=== PATIENT | male | born 1945 | race Caucasian/White ===

== ENCOUNTER 2018-12-11 10:40 | Emergency (ER) | payer MEDICARE, OTHER ==
[2018-12-11] MEDS ORDERED: ACETAMINOPHEN 325 MG TABLET PO STA (12:07)
--- NOTE | 2018-12-11 12:08 | ED Physician Documentation ---
History of Present Illness - Stated complaint Stated Complaint: FEVER,CHILLS,DIZZINESS - Chief complaint Chief Complaint: Heent - History obtained from History obtained from: Patient - History of Present Illness Timing: Last night (Starting last night he has had fevers and chills some aches but no cough, sore throat, runny nose, abdominal pain, nausea, diarrhea. No rash. No recent travel. No sick contacts.) Review of Systems Constitutional: reports: Fever, Chills, Myalgias, Fatigue Nose: denies: Rhinorrhea / runny nose, Congestion Throat: denies: Sore throat Cardiac: denies: Chest pain / pressure, Palpitations Respiratory: denies: Dyspnea, Cough GI: denies: Abdominal Pain, Nausea, Diarrhea : denies: Dysuria, Frequency PD PAST MEDICAL HISTORY - Past Medical History Past Medical History: No - Allergies Allergies/Adverse Reactions: Allergies Allergy/AdvReac Type Severity Reaction Status Date / Time No Known Drug Allergies Allergy Verified 12/11/18 10:44 - Living Situation Living Situation: reports: With spouse/s.o. - Social History Does the pt smoke?: No PD ED PE NORMAL - Vitals Vital signs reviewed: Yes - General General: Alert and oriented X 3, No acute distress - HEENT HEENT: PERRL, EOMI, Ears normal, Pharynx benign - Neck Neck: Supple, no meningeal sign, No bony TTP - Cardiac Cardiac: RRR, Other (I think he is a very subtle heart murmur, potentially 1 out of 6 which he is not aware of, systolic.) - Respiratory Respiratory: No respiratory distress, Clear bilaterally - Abdomen Abdomen: Normal bowel sounds, Soft, Non tender - Back Back: No CVA TTP, No spinal TTP - Derm Derm: Normal color, Warm and dry - Extremities Extremities: No edema, No calf tenderness / cord - Neuro Neuro: Alert and oriented X 3, Normal speech Results - Vitals Vitals: Vital Signs - 24 hr 12/11/18 12/11/18 10:44 11:37 Temperature 38.5 C H 38.8 C H Heart Rate 71 Respiratory 16 Rate Blood Pressure 144/83 H O2 Saturation 97 Oxygen O2 Source Room air - Labs Labs: Laboratory Tests 12/11/18 12/11/18 12/11/18 12:15 12:15 12:15 WBC 10.3 RBC 4.86 Hgb 14.4 Hct 44.2 MCV 90.9 MCH 29.6 MCHC 32.6 RDW 12.7 Plt Count 138 MPV 10.5 Neut # (Auto) 9.3 H Lymph # (Auto) 0.5 L Cottle # (Auto) 0.4 Eos # (Auto) 0.0 Baso # (Auto) 0.0 Absolute Nucleated RBC 0.00 Nucleated RBC % 0.0 Sodium 138 Potassium 3.9 Chloride 105 Carbon Dioxide 25 Anion Gap 8.0 BUN 19 Creatinine 1.0 Estimated GFR (MDRD) 74 L Glucose 108 H Lactic Acid 0.7 Calcium 8.6 Total Bilirubin 1.0 AST 30 ALT 38 Alkaline Phosphatase 49 Total Protein 6.6 L Albumin 3.7 Globulin 2.9 Albumin/Globulin Ratio 1.3 Lipase 26 Urine Color Urine Clarity Urine pH Ur Specific [place] Urine Protein Urine Glucose (UA) Urine Ketones Urine Occult Blood Urine Nitrite Urine Bilirubin Urine Urobilinogen Ur Leukocyte Esterase Ur Microscopic Review Urine Culture Comments 12/11/18 12:34 WBC RBC Hgb Hct MCV MCH MCHC RDW Plt Count MPV Neut # (Auto) Lymph # (Auto) Cottle # (Auto) Eos # (Auto) Baso # (Auto) Absolute Nucleated RBC Nucleated RBC % Sodium Potassium Chloride Carbon Dioxide Anion Gap BUN Creatinine Estimated GFR (MDRD) Glucose Lactic Acid Calcium Total Bilirubin AST ALT Alkaline Phosphatase Total Protein Albumin Globulin Albumin/Globulin Ratio Lipase Urine Color YELLOW Urine Clarity CLEAR Urine pH 6.0 Ur Specific [place] 1.025 Urine Protein TRACE Urine Glucose (UA) NEGATIVE Urine Ketones NEGATIVE Urine Occult Blood TRACE-LYSE Urine Nitrite NEGATIVE Urine Bilirubin NEGATIVE Urine Urobilinogen 0.2 (NORMAL) Ur Leukocyte Esterase NEGATIVE Ur Microscopic Review NOT INDICATED Urine Culture Comments NOT INDICATED PD MEDICAL DECISION MAKING - ED course ED course: 73-year-old gentleman presents with fever without a source with [employer]. Confirmed fever here. Very modest elevated white count but moderate left shift. The remainder of his work-up here was negative, but he does have a very subtle murmur which was not previously documented. Given that I recommended evaluation with echocardiogram. The patient wanted to go to the [facility] system to make sure everything was getting covered well, and I made arrangements with the [facility] to be accepted to [place] urgent care under the care of Dr. Duggan. I offered transfer by ambulance but the patient refused. He is stable to go POV though. Departure - Departure Disposition: 02 Transfer Acute Care Hosp Clinical Impression: FUO (fever of unknown origin), Murmur, cardiac Condition: Stable
[2018-12-11 12:25] LABS: BASOPHILS % (AUTO) 0.3 %; HGB - HEMOGLOBIN 14.4 g/dL (14.0-18.0); LYMPHOCYTES # (AUTO) 0.5 10^3/uL (1.5-3.5); LYMPHOCYTES % (AUTO) 5.2 %; MEAN CORPUSCULAR HEMOGLOBIN 29.6 pg (27.0-31.0); MEAN CORPUSCULAR HGB CONC 32.6 g/dL (32.0-36.0); MEAN CORPUSCULAR VOLUME 90.9 fL (80.0-94.0); MEAN PLATELET VOLUME 10.5 fL (7.4-11.4); MONOCYTES # (AUTO) 0.4 10^3/uL (0.0-1.0); MONOCYTES % (AUTO) 3.4 %; NEUTROPHILS # (AUTO) 9.3 10^3/uL (1.5-6.6); NEUTROPHILS % (AUTO) 90.5 %; PLT - PLATELET COUNT 138 10^3/uL (130-450); RED BLOOD COUNT 4.86 10^6/uL (4.70-6.10); RED CELL DISTRIBUTION WIDTH 12.7 % (12.0-15.0); WHITE BLOOD COUNT 10.3 x10^3/uL (4.8-10.8)
[2018-12-11 12:35] LABS: ALBUMIN 3.7 g/dL (3.2-5.5); ALBUMIN/GLOBULIN RATIO 1.3 (1.0-2.2); CALCIUM 8.6 mg/dL (8.5-10.3); TOTAL PROTEIN 6.6 g/dL (6.7-8.2)
[2018-12-11 12:41] LABS: BILIRUBIN,URINE NEGATIVE (NEGATIVE); GLUCOSE, URINE (UA) NEGATIVE (NEGATIVE); KETONES,URINE (UA) NEGATIVE (NEGATIVE); LEUKOCYTE ESTERASE, URINE NEGATIVE (NEGATIVE); NITRITE,URINE NEGATIVE (NEGATIVE); OCCULT BLOOD,URINE TRACE-LYSE (NEGATIVE); PROTEIN,URINE TRACE mg/dL (NEGATIVE); UROBILINOGEN,URINE 0.2 (NORMAL) E.U./dL (NORMAL)
[2018-12-11 12:43] LABS: CLARITY,URINE CLEAR (CLEAR)
--- NOTE | 2018-12-11 13:24 | XRAY Report ---
Reason: fever Procedure Date: 12/11/2018 Accession Number: [id number] / [id number] Procedure: XR - Chest 2 View X-Ray CPT Code: 40907 FULL RESULT: EXAM: CHEST RADIOGRAPHY EXAM DATE: 12/11/2018 12:24 PM. CLINICAL HISTORY: Fever. COMPARISON: None. TECHNIQUE: 2 views. FINDINGS: Lungs/Pleura: No focal opacities evident. No pleural effusion. No pneumothorax. Normal volumes. Mediastinum: Heart and mediastinal contours are unremarkable. Other: None. IMPRESSION: Normal 2-view chest radiography. No focal infiltrates. [facility]
[2018-12-11 15:45] VITALS: BP 136/62
== END 2018-12-11 15:45 | disposition short-term general hospital (02) ==
LOC: ED 10:40
DX: R50.9 Fever, unspecified (principal); R01.1 Cardiac murmur, unspecified; D72.829 Elevated white blood cell count, unspecified
CPT/HCPCS: 36415; 71046; 80053; 81003; 83605; 83690; 85025; 87040; 99283; 99285; A9270; 81001; 87086